=== PATIENT | female | born 1970 | race Caucasian/White ===

== ENCOUNTER 2017-02-12 15:03 | Emergency (ER) | payer MEDICAID, MEDICARE ==
[~2017-02-12] VITALS: Ht 162.6 cm; Wt 66.7 kg
[~2017-02-12 15:03] MED LIST: ACHD5005 PO; ALBU17AE23 IH; ALBU17AE3 IH; ALBU8.5H2 IH; ALBU8.5H2 INH; ALPR.5T PO; ALPR1T PO; ALPR1TAB7 PO; ATEN50TA; AZIT-21 PO; BENZ0.5T3 PO; BUDE10.22 IH; BUDE6HFA; BUDE6HFA IH; BUDE6HFA INH; CARB200T6; CIPR500T78 PO; CITA20TA4 PO; CLIN300C3 PO; CLON1TAB3; CYCL10TA9 PO; DICY20TA57 PO; DIPH-633 PO; DULO60CA58 PO; DULO60CA6 PO; DVL250TEC1; EPIN0.3P3 IM; FAMO20TA5; FAMO20TA5 PO; FLUT16SP22 NSEACH; FLUT1DIS26; GEODON; HYDR-2856 PO; HYDR-3583 PO; HYDR-757 PO; HYDR1TAB PO; HYDR25CA5 PO; IBP800T PO; IBUP-1773 PO; LD5PT TOP; LRT10T; MONT4TAB5; MUCINEX; NAPR-243 PO; OLN10T PO; PENI500T PO; PRCD5U PO; PRD20T; PRD20T PO; PROP1TAB77 PO; QUET400T; QUET50TA; RISP1TAB; RSP1T PO; RT-ALBUINH IH; SULF-222 PO; SULF1TAB38 PO; TOPI50TA2 PO; TRASADONE; TRAZ150T42 PO; TRM50T PO; ZOLP10TA5 PO
--- OUTSIDE RECORDS SUMMARY | 2017-02-12 15:13 | XMS REPORT | Continuity of Care Document ---
Author Author [facility] Address Unknown Phone Unavailable Allergies Active Description Code Type Severity Reaction Onset Reported/Identified Relationship to Patient Clinical Status Yes aripiprazole [id number] Drug Allergy Mild N/A 12/21/2008 Yes Abilify Drug Allergy N/A N/A 02/24/2010 Yes Abilify Drug Allergy 02/24/2010 Yes Geodon Drug Allergy N/A N/A 07/13/2012 Yes Geodon Drug Allergy 07/13/2012 Yes ziprasidone HCl [id number] Drug Allergy Severe N/A 12/08/2012 Yes ziprasidone mesylate [id number] Drug Allergy Severe N/A 12/08/2012 Yes hydrocodone-acetaminophen 5-325 mg tablet Drug Allergy N/A N/A 03/23/2013 Yes Xanax 1 mg tablet Drug Allergy N/A N/A 03/23/2013 Medications Problems Date Dx Coded Attending Type Code Diagnosis Diagnosed By 02/06/2010 296.80 MO BIPOLAR NOS 02/06/2010 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 02/06/2010 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 02/06/2010 296.80 MO BIPOLAR NOS 02/06/2010 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 02/06/2010 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 02/06/2010 TAE OLIVIER APRN 296.80 MO BIPOLAR NOS 02/06/2010 TAE OLIVIER APRN 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 02/06/2010 TAE OLIVIER APRN 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 02/06/2010 KENNY WALKER APRNIA R 296.80 MO BIPOLAR NOS 02/06/2010 COLIN WALKER APRNRICIA R 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 02/06/2010 COLIN WALKER APRNRICIA R 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 02/06/2010 COLIN WALKER APRNRICIA R 296.80 MO BIPOLAR NOS 02/06/2010 COLIN WALKER APRNRICIA R 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 02/06/2010 WALKER HEADING REPAIRER, JOSELUIS R 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 02/06/2010 CARVAJAL DO, GALDINO K 296.80 MO BIPOLAR NOS 02/06/2010 CARVAJAL DO, GALDINO K 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 02/06/2010 CARVAJAL DO, GALDINO K 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 02/06/2010 OLIVIERLAUREN GILL TAE SHANNON 296.80 MO BIPOLAR NOS 02/06/2010 SOY GILL TAE SHANNON 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 02/06/2010 SOY GILL TAE SHANNON 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 02/06/2010 296.80 MO BIPOLAR NOS 02/06/2010 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 02/06/2010 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 02/06/2010 296.80 MO BIPOLAR NOS 02/06/2010 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 02/06/2010 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 02/06/2010 296.80 MO BIPOLAR NOS 02/06/2010 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 02/06/2010 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 02/06/2010 296.80 MO BIPOLAR NOS 02/06/2010 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 02/06/2010 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 02/06/2010 296.80 MO BIPOLAR NOS 02/06/2010 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 02/06/2010 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 02/06/2010 SOY GILL TAE SHANNON 296.80 MO BIPOLAR NOS 02/06/2010 SOY GILL TAE SHANNON 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 02/06/2010 SOY GILL TAE SHANNON 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 02/06/2010 SOY GILL TAE SHANNON 296.80 MO BIPOLAR NOS 02/06/2010 SOY GILL TAE SHANNON 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 02/06/2010 OLIVIER APRN, TAE SHANNON 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 02/06/2010 CARVAJAL DO, GALDINO K 296.80 MO BIPOLAR NOS 02/06/2010 CARVAJAL DO, GALDINO K 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 02/06/2010 CARVAJAL DO, GALDINO K 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 02/06/2010 OLIVIER HEADING REPAIRER, TAE SHANNON 296.80 MO BIPOLAR NOS 02/06/2010 OLIVIER HEADING REPAIRER, TAE SHANNON 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 02/06/2010 OLIVIER HEADING REPAIRER, TAE BAH 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 02/06/2010 CARVAJAL DO, GALDINO K 296.80 MO BIPOLAR NOS 02/06/2010 CARVAJAL DO, GALDINO K 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 02/06/2010 CARVAJAL DO, GALDINO K 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 02/06/2010 OLIVIER HEADING REPAIRER, TAE SHANNON 296.80 MO BIPOLAR NOS 02/06/2010 OLIVIER HEADING REPAIRER, TAE BAH 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 02/06/2010 OLIVIER HEADING REPAIRER, TAE BAH 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 02/06/2010 CARVAJAL DO, GALDINO K 296.80 MO BIPOLAR NOS 02/06/2010 CARVAJAL DO, GALDINO K 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 02/06/2010 CARVAJAL DO, GALDINO K 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 02/06/2010 ROMELIA KESSLER MD 296.80 MO BIPOLAR NOS 02/06/2010 CHECO LEYVA, ROMELIA Guerra 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 02/06/2010 ROMELIA KESSLER MD 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 02/06/2010 OLIVIER HEADING REPAIRER, TAE BAH 296.80 MO BIPOLAR NOS 02/06/2010 OLIVIER HEADING REPAIRER, TAE BAH 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 02/06/2010 OLIVIER HEADING REPAIRER, TAE SHIVA 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 02/06/2010 OLIVIER HEADING REPAIRER, TAE SHANNON 296.80 MO BIPOLAR NOS 02/06/2010 OLIVIER HEADING REPAIRER, TAE SHIVA 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 02/06/2010 OLIVIER HEADING REPAIRER, TAE SHIVA 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 02/06/2010 OLIVIER HEADING REPAIRER, TAE SHANNON 296.80 MO BIPOLAR NOS 02/06/2010 OLIVIER HEADING REPAIRER, TAE SHIVA 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 02/06/2010 OLIVIER HEADING REPAIRER, TAE SHIVA 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 02/06/2010 296.80 MO BIPOLAR NOS 02/06/2010 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 02/06/2010 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 02/06/2010 TAE OLIVIER APRN 296.80 MO BIPOLAR NOS 02/06/2010 TAE OLIVIER APRN 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90 Asthma Unspecified 02/24/2010 729.5 Pain In Limb 02/24/2010 TAE OLIVIER APRN 401.9 UNSPECIFIED ESSENTIAL HYPERTENSION 02/24/2010 TAE OLIVIER APRN 493.90 Asthma Unspecified 02/24/2010 TAE OLIVIER APRN 729.5 Pain In Limb 02/24/2010 COLIN WALKER APRNRICIA R 401.9 UNSPECIFIED ESSENTIAL HYPERTENSION 02/24/2010 DENISE GILL JOSELUIS R 493.90 Asthma Unspecified 02/24/2010 DENISE GILL JOSELUIS R 729.5 Pain In Limb 02/24/2010 DENISE GILL JOSELUIS R 401.9 UNSPECIFIED ESSENTIAL HYPERTENSION 02/24/2010 DENISE GILL JOSELUIS R 493.90 Asthma Unspecified 02/24/2010 DENISE GILL JOSELUIS R 729.5 Pain In Limb 02/24/2010 CARVAJAL DO, GALDINO K 401.9 UNSPECIFIED ESSENTIAL HYPERTENSION 02/24/2010 CARVAJAL DO, GALDINO K 493.90 Asthma Unspecified 02/24/2010 CARVAJAL DO, GALDINO K 729.5 Pain In Limb 02/24/2010 TAE OLIVIER APRN 401.9 UNSPECIFIED ESSENTIAL HYPERTENSION 02/24/2010 SOY GILL, TAE SHANNON 493.90 Asthma Unspecified 02/24/2010 SOY CALHOUNN, TAE SHANNON 729.5 Pain In Limb 02/24/2010 401.9 UNSPECIFIED ESSENTIAL HYPERTENSION 02/24/2010 493.90 Asthma Unspecified 02/24/2010 729.5 Pain In Limb 02/24/2010 401.9 UNSPECIFIED ESSENTIAL HYPERTENSION 02/24/2010 493.90 Asthma Unspecified 02/24/2010 729.5 Pain In Limb 02/24/2010 401.9 UNSPECIFIED ESSENTIAL HYPERTENSION 02/24/2010 493.90 Asthma Unspecified 02/24/2010 729.5 Pain In Limb 02/24/2010 401.9 UNSPECIFIED ESSENTIAL HYPERTENSION 02/24/2010 493.90 Asthma Unspecified 02/24/2010 729.5 Pain In Limb 02/24/2010 401.9 UNSPECIFIED ESSENTIAL HYPERTENSION 02/24/2010 493.90 Asthma Unspecified 02/24/2010 729.5 Pain In Limb 02/24/2010 SOY GILL, TAE SHANNON 401.9 UNSPECIFIED ESSENTIAL HYPERTENSION 02/24/2010 SOY GILL, TAE SHANNON 493.90 Asthma Unspecified 02/24/2010 SOY GILL, TAE SHANNON 729.5 Pain In Limb 02/24/2010 SOY GILL, TAE SHANNON 401.9 UNSPECIFIED ESSENTIAL HYPERTENSION 02/24/2010 SOY GILL, TAE BAH 493.90 Asthma Unspecified 02/24/2010 SOY GILL, TAE SHANNON 729.5 Pain In Limb 02/24/2010 CARVAJAL DO, GALDINO K 401.9 UNSPECIFIED ESSENTIAL HYPERTENSION 02/24/2010 CARVAJAL DO, GALDINO K 493.90 Asthma Unspecified 02/24/2010 CARVAJAL DO, GALDINO K 729.5 Pain In Limb 02/24/2010 OLIVIER HEADING REPAIRER, TAE SHANNON 401.9 UNSPECIFIED ESSENTIAL HYPERTENSION 02/24/2010 OLIVIER HEADING REPAIRER, TAE BAH 493.90 Asthma Unspecified 02/24/2010 OLIVIER HEADING REPAIRER, TAE SHANNON 729.5 Pain In Limb 02/24/2010 CARVAJAL DO, GALDINO K 401.9 UNSPECIFIED ESSENTIAL HYPERTENSION 02/24/2010 CARVAJAL DO, GALDINO K 493.90 Asthma Unspecified 02/24/2010 CARVAJAL DO, GALDINO K 729.5 Pain In Limb 02/24/2010 OLIVIER HEADING REPAIRER, TAE SHANNON 401.9 UNSPECIFIED ESSENTIAL HYPERTENSION 02/24/2010 OILVIER HEADING REPAIRER, TAE SHANNON 493.90 Asthma Unspecified 02/24/2010 OLIVIER HEADING REPAIRER, TAE SHANNON 729.5 Pain In Limb 02/24/2010 CARVAJAL DO, GALDINO K 401.9 UNSPECIFIED ESSENTIAL HYPERTENSION 02/24/2010 CARVAJAL DO, GALDINO K 493.90 Asthma Unspecified 02/24/2010 CARVAJAL DO, GALDINO K 729.5 Pain In Limb 02/24/2010 ROMELIA KESSLER MD 401.9 UNSPECIFIED ESSENTIAL HYPERTENSION 02/24/2010 ROMELIA KESSLER MD 493.90 Asthma Unspecified 02/24/2010 ROMELIA KESSLER MD 729.5 Pain In Limb 02/24/2010 OLIVIER HEADING REPAIRER, TAE BAH 401.9 UNSPECIFIED ESSENTIAL HYPERTENSION 02/24/2010 OLIVIER HEADING REPAIRER, TAE SHANNON 493.90 Asthma Unspecified 02/24/2010 OLIVIER HEADING REPAIRER, TAE SHANNON 729.5 Pain In Limb 02/24/2010 OLIVIER HEADING REPAIRER, TAE SHANNON 401.9 UNSPECIFIED ESSENTIAL HYPERTENSION 02/24/2010 OLIVIER HEADING REPAIRER, TAE SHANNON 493.90 Asthma Unspecified 02/24/2010 OLIVIER HEADING REPAIRER, TAE SHANNON 729.5 Pain In Limb 02/24/2010 OLIVIER HEADING REPAIRER, TAE SHANNON 401.9 UNSPECIFIED ESSENTIAL HYPERTENSION 02/24/2010 OLIVIER HEADING REPAIRER, TAE SHANNON 493.90 Asthma Unspecified 02/24/2010 OLIVIER HEADING REPAIRER, TAE SHANNON 729.5 Pain In Limb 02/24/2010 401.9 UNSPECIFIED ESSENTIAL HYPERTENSION 02/24/2010 493.90 Asthma Unspecified 02/24/2010 729.5 Pain In Limb 02/24/2010 OLIVIER HEADING REPAIRER, TAE BAH 401.9 UNSPECIFIED ESSENTIAL HYPERTENSION 02/24/2010 OLIVIER HEADING REPAIRER, TAE SHANNON 493.90 Asthma Unspecified 02/24/2010 OLIVIER HEADING REPAIRER, TAE SHANNON 729.5 Pain In Limb 02/24/2010 MADL HEADING REPAIRER, MICHOACANO L 401.9 UNSPECIFIED ESSENTIAL HYPERTENSION 02/24/2010 MICHOACANO CALDERÓN APRN L 493.90 Asthma Unspecified 02/24/2010 MICHOACANO CALDERÓN APRN L 729.5 Pain In Limb 02/24/2010 TAE OLIVIER APRN 401.9 UNSPECIFIED ESSENTIAL HYPERTENSION 02/24/2010 TAE OLIVIER APRN 493.90 Asthma Unspecified 02/24/2010 TAE OLIVIER APRN 729.5 Pain In Limb 09/17/2010 V58.69 MEDICATION HIGH RISK 09/17/2010 V58.69 MEDICATION HIGH RISK 09/17/2010 TAE OLIVIER APRN V58.69 MEDICATION HIGH RISK 09/17/2010 WALKER HEADING REPAIRER, JOSELUIS R V58.69 MEDICATION HIGH RISK 09/17/2010 WALKER JAIRO JOSELUIS R V58.69 MEDICATION HIGH RISK 09/17/2010 CARVAJAL DO, GALDINO K V58.69 MEDICATION HIGH RISK 09/17/2010 TAE OLIVIER APRN V58.69 MEDICATION HIGH RISK 09/17/2010 V58.69 MEDICATION HIGH RISK 09/17/2010 V58.69 MEDICATION HIGH RISK 09/17/2010 V58.69 MEDICATION HIGH RISK 09/17/2010 V58.69 MEDICATION HIGH RISK 09/17/2010 V58.69 MEDICATION HIGH RISK 09/17/2010 TAE OLIVIER APRN V58.69 MEDICATION HIGH RISK 09/17/2010 TAE OLIVIER APRN V58.69 MEDICATION HIGH RISK 09/17/2010 CARVAJAL DO, GALDINO K V58.69 MEDICATION HIGH RISK 09/17/2010 SOY CALHOUNKamille TAE SHANNON V58.69 MEDICATION HIGH RISK 09/17/2010 CARVAJAL DO, GALDINO K V58.69 MEDICATION HIGH RISK 09/17/2010 OLIVIER JAIRO, TAE SHANNON V58.69 MEDICATION HIGH RISK 09/17/2010 CARVAJAL DO, GALDINO K V58.69 MEDICATION HIGH RISK 09/17/2010 CHECO LEYVA, ROMELIA Guerra V58.69 MEDICATION HIGH RISK 09/17/2010 TAE OLIVIER APRN V58.69 MEDICATION HIGH RISK 09/17/2010 SOY CALHOUNKamille TAE SHANNON V58.69 MEDICATION HIGH RISK 09/17/2010 SOY CALHOUNNTAE V58.69 MEDICATION HIGH RISK 09/17/2010 V58.69 MEDICATION HIGH RISK 09/17/2010 TAE OLIVIER APRN V58.69 MEDICATION HIGH RISK 09/17/2010 STEPHANE CALHOUNNMICHOACANO V58.69 MEDICATION HIGH RISK 09/17/2010 SOY CALHOUNNTAE V58.69 MEDICATION HIGH RISK 10/28/2010 295.30 P SCHIZO PARANOID UNSPECIFIED 10/28/2010 295.30 P SCHIZO PARANOID UNSPECIFIED 10/28/2010 OLIVIER HEADING REPAIRER, TAE SHANNON 295.30 P SCHIZO PARANOID UNSPECIFIED 10/28/2010 KENNY WALKER APRNIA R 295.30 P SCHIZO PARANOID UNSPECIFIED 10/28/2010 JOSELUIS WALKER APRN R 295.30 P SCHIZO PARANOID UNSPECIFIED 10/28/2010 GALDINO CARVAJAL DO 295.30 P SCHIZO PARANOID UNSPECIFIED 10/28/2010 SOY GILL TAE SHIVA 295.30 P SCHIZO PARANOID UNSPECIFIED 10/28/2010 295.30 P SCHIZO PARANOID UNSPECIFIED 10/28/2010 295.30 P SCHIZO PARANOID UNSPECIFIED 10/28/2010 295.30 P SCHIZO PARANOID UNSPECIFIED 10/28/2010 295.30 P SCHIZO PARANOID UNSPECIFIED 10/28/2010 295.30 P SCHIZO PARANOID UNSPECIFIED 10/28/2010 SOY GILL TAE SHIVA 295.30 P SCHIZO PARANOID UNSPECIFIED 10/28/2010 SOY GILL TAE SHIVA 295.30 P SCHIZO PARANOID UNSPECIFIED 10/28/2010 GALDINO CARVAJAL DO K 295.30 P SCHIZO PARANOID UNSPECIFIED 10/28/2010 SOY GILL TAE SHIVA 295.30 P SCHIZO PARANOID UNSPECIFIED 10/28/2010 GALDION CARVAJAL DO K 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.30 P SCHIZO PARANOID UNSPECIFIED 10/28/2010 SOY GILL TAE SHIVA 295.30 P SCHIZO PARANOID UNSPECIFIED 10/28/2010 GALDINO CARVAJAL DO K 295.30 P SCHIZO PARANOID UNSPECIFIED 10/28/2010 CHECO LEYVA, ROMELIA Guerra 295.30 P SCHIZO PARANOID UNSPECIFIED 10/28/2010 OLIVIERTAE JOHNSON APRN 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.30 P SCHIZO PARANOID UNSPECIFIED 10/28/2010 OLIVIER TAE GILL 295.30 P SCHIZO PARANOID UNSPECIFIED 10/28/2010 OLIVIERTAE JOHNSON APRN 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.30 P SCHIZO PARANOID UNSPECIFIED 10/28/2010 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.30 P SCHIZO PARANOID UNSPECIFIED 10/28/2010 TAE OLIVIER APRN 295.30 P SCHIZO PARANOID UNSPECIFIED 10/28/2010 ARACELIL MICHOACANO GILL 295.30 P SCHIZO PARANOID UNSPECIFIED 10/28/2010 OLIVIERTAE JOHNSON APRN 295.30 P SCHIZO PARANOID UNSPECIFIED 02/24/2011 300.02 AN GEN ANXIETY 02/24/2011 300.02 AN GEN ANXIETY 02/24/2011 TAE OLIVIER APRN 300.02 AN GEN ANXIETY 02/24/2011 KENNY WALKER APRNIA R 300.02 AN GEN ANXIETY 02/24/2011 JOSELUIS WALKER APRN R 300.02 AN GEN ANXIETY 02/24/2011 CARVAJAL ELISE MACEDOA K 300.02 AN GEN ANXIETY 02/24/2011 SOY CALHOUNNTAE 300.02 AN GEN ANXIETY 02/24/2011 300.02 AN GEN ANXIETY 02/24/2011 300.02 AN GEN ANXIETY 02/24/2011 300.02 AN GEN ANXIETY 02/24/2011 300.02 AN GEN ANXIETY 02/24/2011 300.02 AN GEN ANXIETY 02/24/2011 SOY CALHOUNNTAE 300.02 AN GEN ANXIETY 02/24/2011 SOY CALHOUNKmaille TAE SHANNON 300.02 AN GEN ANXIETY 02/24/2011 CARVAJAL ELISE MACEDOA K 300.02 AN GEN ANXIETY 02/24/2011 SOY CALHOUNKamille TAE SHANNON 300.02 AN GEN ANXIETY 02/24/2011 CARVAJAL DO GALDINO K 300.02 AN GEN ANXIETY 02/24/2011 SOY CALHOUNKamille TAE SHANNON 300.02 AN GEN ANXIETY 02/24/2011 CARVAJAL DO GALDINO K 300.02 AN GEN ANXIETY 02/24/2011 CHECO LEYVA, ROMELIA Guerra 300.02 AN GEN ANXIETY 02/24/2011 SOY CALHOUNKamille TAE SHANNON 300.02 AN GEN ANXIETY 02/24/2011 TAE OLIVIER APRN 300.02 AN GEN ANXIETY 02/24/2011 TAE OLIVIER APRN 300.02 AN GEN ANXIETY 02/24/2011 300.02 AN GEN ANXIETY 02/24/2011 TAE OLIVIER APRN 300.02 AN GEN ANXIETY 02/24/2011 MICHOACANO CALDERÓN APRN 300.02 AN GEN ANXIETY 02/24/2011 TAE OLIVIER APRN 300.02 AN GEN ANXIETY 04/13/2011 272.4 OTHER AND UNSPECIFIED HYPERLIPIDEMIA 04/13/2011 586 Renal Failure Unspecified 04/13/2011 728.85 Spasm Of Muscle 04/13/2011 272.4 OTHER AND UNSPECIFIED HYPERLIPIDEMIA 04/13/2011 586 Renal Failure Unspecified 04/13/2011 728.85 Spasm Of Muscle 04/13/2011 TAE OLIVIER APRN 272.4 OTHER AND UNSPECIFIED HYPERLIPIDEMIA 04/13/2011 TAE OLIVIER APRN 586 Renal Failure Unspecified 04/13/2011 TAE OLIVIER APRNH 728.85 Spasm Of Muscle 04/13/2011 DENISE CALHOUNCOLIN SimentalJOSELUIS R 272.4 OTHER AND UNSPECIFIED HYPERLIPIDEMIA 04/13/2011 DENISE CALHOUNKamille JOSELUIS R 586 Renal Failure Unspecified 04/13/2011 WALKER HEADING REPAIRERCOILN SimentalJOSELUIS R 728.85 Spasm Of Muscle 04/13/2011 DENISE CALHOUNKamille JOSELUIS R 272.4 OTHER AND UNSPECIFIED HYPERLIPIDEMIA 04/13/2011 DENISE CALHOUNKamille JOSELUIS R 586 Renal Failure Unspecified 04/13/2011 WALKER HEADING REPAIRERCOLIN SimentalJOSELUIS R 728.85 Spasm Of Muscle 04/13/2011 CARVAJAL DO, GALDINO K 272.4 OTHER AND UNSPECIFIED HYPERLIPIDEMIA 04/13/2011 CARVAJAL DO, GALDINO K 586 Renal Failure Unspecified 04/13/2011 CARVAJAL DO, GALDINO K 728.85 Spasm Of Muscle 04/13/2011 TAE OLIVIER APRN 272.4 OTHER AND UNSPECIFIED HYPERLIPIDEMIA 04/13/2011 TAE OLIVIER APRN SHIVA 586 Renal Failure Unspecified 04/13/2011 TAE OLIVIER APRNH 728.85 Spasm Of Muscle 04/13/2011 272.4 OTHER AND UNSPECIFIED HYPERLIPIDEMIA 04/13/2011 586 Renal Failure Unspecified 04/13/2011 728.85 Spasm Of Muscle 04/13/2011 272.4 OTHER AND UNSPECIFIED HYPERLIPIDEMIA 04/13/2011 586 Renal Failure Unspecified 04/13/2011 728.85 Spasm Of Muscle 04/13/2011 272.4 OTHER AND UNSPECIFIED HYPERLIPIDEMIA 04/13/2011 586 Renal Failure Unspecified 04/13/2011 728.85 Spasm Of Muscle 04/13/2011 272.4 OTHER AND UNSPECIFIED HYPERLIPIDEMIA 04/13/2011 586 Renal Failure Unspecified 04/13/2011 728.85 Spasm Of Muscle 04/13/2011 272.4 OTHER AND UNSPECIFIED HYPERLIPIDEMIA 04/13/2011 586 Renal Failure Unspecified 04/13/2011 728.85 Spasm Of Muscle 04/13/2011 OLIVIER TAE GILLH 272.4 OTHER AND UNSPECIFIED HYPERLIPIDEMIA 04/13/2011 OLIVIER TAE GILLH 586 Renal Failure Unspecified 04/13/2011 OLIVIER TAE GILLH 728.85 Spasm Of Muscle 04/13/2011 OLIVIER TAE GILLH 272.4 OTHER AND UNSPECIFIED HYPERLIPIDEMIA 04/13/2011 OLIVIER TAE GILL SHIVA 586 Renal Failure Unspecified 04/13/2011 OLIVIER TAE GILLH 728.85 Spasm Of Muscle 04/13/2011 CARVAJAL DO, GALDINO K 272.4 OTHER AND UNSPECIFIED HYPERLIPIDEMIA 04/13/2011 CARVAJAL DO, GALDINO K 586 Renal Failure Unspecified 04/13/2011 CARVAJAL DO, GALDINO K 728.85 Spasm Of Muscle 04/13/2011 OLIVIER TAE GILLH 272.4 OTHER AND UNSPECIFIED HYPERLIPIDEMIA 04/13/2011 OLIVIER HEADING REPAIRERTAEH 586 Renal Failure Unspecified 04/13/2011 OLIVIER TAE GILL 728.85 Spasm Of Muscle 04/13/2011 CARVAJAL DO, GALDINO K 272.4 OTHER AND UNSPECIFIED HYPERLIPIDEMIA 04/13/2011 CARVAJAL DO, GALDINO K 586 Renal Failure Unspecified 04/13/2011 CARVAJAL DO, GALDINO K 728.85 Spasm Of Muscle 04/13/2011 OLIVIER HEADING REPAIRERTAE SimentalH 272.4 OTHER AND UNSPECIFIED HYPERLIPIDEMIA 04/13/2011 OLIVIER HEADING REPAIRER, TAE BAH 586 Renal Failure Unspecified 04/13/2011 OLIVIER TAE GILL SHIVA 728.85 Spasm Of Muscle 04/13/2011 CARVAJAL DO, GALDINO K 272.4 OTHER AND UNSPECIFIED HYPERLIPIDEMIA 04/13/2011 CARVAJAL DO, GALDINO K 586 Renal Failure Unspecified 04/13/2011 CARVAJAL DO, GALDINO K 728.85 Spasm Of Muscle 04/13/2011 ROMELIA KESSLER MD 272.4 OTHER AND UNSPECIFIED HYPERLIPIDEMIA 04/13/2011 ROMELIA KESSLER MD 586 Renal Failure Unspecified 04/13/2011 ROMELIA KESSLER MD 728.85 Spasm Of Muscle 04/13/2011 OLIVIER HEADING REPAIRERTAE 272.4 OTHER AND UNSPECIFIED HYPERLIPIDEMIA 04/13/2011 OLIVIER HEADING REPAIRER, TAE SHIVA 586 Renal Failure Unspecified 04/13/2011 OLIVIER HEADING REPAIRER, TAE BAH 728.85 Spasm Of Muscle 04/13/2011 OLIVIER HEADING REPAIRERTAEH 272.4 OTHER AND UNSPECIFIED HYPERLIPIDEMIA 04/13/2011 OLIVIER HEADING REPAIRER, TAE SHIVA 586 Renal Failure Unspecified 04/13/2011 OLIVIER HEADING REPAIRER, TAE BAH 728.85 Spasm Of Muscle 04/13/2011 OLIVIER HEADING REPAIRER, TAE SHIVA 272.4 OTHER AND UNSPECIFIED HYPERLIPIDEMIA 04/13/2011 OLIVIER HEADING REPAIRER, TAE SHIVA 586 Renal Failure Unspecified 04/13/2011 OLIVIER HEADING REPAIRER, TAE BAH 728.85 Spasm Of Muscle 04/13/2011 272.4 OTHER AND UNSPECIFIED HYPERLIPIDEMIA 04/13/2011 586 Renal Failure Unspecified 04/13/2011 728.85 Spasm Of Muscle 04/13/2011 OLIVIER HEADING REPAIRERTAE SHIVA 272.4 OTHER AND UNSPECIFIED HYPERLIPIDEMIA 04/13/2011 OLIVIER HEADING REPAIRER, TAE SHIVA 586 Renal Failure Unspecified 04/13/2011 OLIVIER HEADING REPAIRER, TAE HSIVA 728.85 Spasm Of Muscle 04/13/2011 MADL HEADING REPAIRER, MICHOACANO L 272.4 OTHER AND UNSPECIFIED HYPERLIPIDEMIA 04/13/2011 MADL HEADING REPAIRER, MICHOACANO L 586 Renal Failure Unspecified 04/13/2011 MADL HEADING REPAIRER, MICHOACANO L 728.85 Spasm Of Muscle 04/13/2011 OLIVIER HEADING REPAIRER, TAE SHIVA 272.4 OTHER AND UNSPECIFIED HYPERLIPIDEMIA 04/13/2011 TAE OLIVIER APRN 586 Renal Failure Unspecified 04/13/2011 TAE OLIVIER APRN 728.85 Spasm Of Muscle 07/09/2011 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 07/09/2011 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 07/09/2011 TAE OLIVIER APRN 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 07/09/2011 JOSELUIS WALKER APRN R 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 07/09/2011 KENNY WALKER APRNIA R 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 07/09/2011 CARVAJAL DO, GALDINO K 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 07/09/2011 SOY GILL TAE SHIVA 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 07/09/2011 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 07/09/2011 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 07/09/2011 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 07/09/2011 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 07/09/2011 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 07/09/2011 TAE OLIVIER APRN 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 07/09/2011 TAE OLIVIER APRN 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 07/09/2011 CARVAJAL DO, AGLDINO K 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 07/09/2011 SOY GILL TAE SHIVA 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 07/09/2011 CARVAJAL DO, GALDINO K 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 07/09/2011 TAE OLIVIER APRN 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 07/09/2011 CARVAJAL DO, GALDINO K 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 07/09/2011 ROMELIA KESSLER MD 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 07/09/2011 TAE OLIVIER APRN 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 07/09/2011 TAE OLIVIER APRN 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 07/09/2011 TAE OLIVIER APRN 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 07/09/2011 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 07/09/2011 TAE OLIVIER APRN 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 07/09/2011 MICHOACANO CALDERÓN APRN 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 07/09/2011 TAE OLIVIER APRN 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 10/15/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/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/2011 TAE OLIVIER APRN 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/2011 JOSELUIS WALKER APRN R 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/2011 JOSELUIS WALKER APRN R 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/2011 GALDINO CARVAJAL DO K 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/2011 TAE OLIVIER APRN 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/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/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/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/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/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/2011 TAE OLIVIER APRN 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/2011 TAE OLIVIER APRN 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/2011 GALDINO CARVAJAL DO K 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/2011 TAE OLIVIER APRN 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/2011 GALDINO CARVAJAL DO K 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/2011 TAE OLIVIER APRN 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81 Flu Dx (medicare Only) 01/14/2012 461.9 Sinusitis Acute 01/14/2012 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 01/14/2012 V04.81 Flu Dx (medicare Only) 01/14/2012 TAE OLIVIER APRN 461.9 Sinusitis Acute 01/14/2012 SOY CALHOUNKamille TAE SHIVA 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 01/14/2012 SOY CALHOUNNTAE V04.81 Flu Dx (medicare Only) 01/14/2012 JOSELUIS WALKER APRN 461.9 Sinusitis Acute 01/14/2012 JOSELUIS WALKER APRN 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 01/14/2012 JOSELUIS WALKER APRN V04.81 Flu Dx (medicare Only) 01/14/2012 JOSELUIS WALKER APRN 461.9 Sinusitis Acute 01/14/2012 JOSELUIS WALKER APRN 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 01/14/2012 JOSELUIS WALKER APRN V04.81 Flu Dx (medicare Only) 01/14/2012 CARVAJAL DOELISEA K 461.9 Sinusitis Acute 01/14/2012 CARVAJAL DO GALDINO K 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 01/14/2012 CARVAJAL DO, GALDINO K V04.81 Flu Dx (medicare Only) 01/14/2012 OLIVIER HEADING REPAIRERTAE 461.9 Sinusitis Acute 01/14/2012 OLIVIER HEADING REPAIRER, TAE BAH 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 01/14/2012 SOY CALHOUNNTAE V04.81 Flu Dx (medicare Only) 01/14/2012 461.9 Sinusitis Acute 01/14/2012 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 01/14/2012 V04.81 Flu Dx (medicare Only) 01/14/2012 461.9 Sinusitis Acute 01/14/2012 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 01/14/2012 V04.81 Flu Dx (medicare Only) 01/14/2012 461.9 Sinusitis Acute 01/14/2012 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 01/14/2012 V04.81 Flu Dx (medicare Only) 01/14/2012 461.9 Sinusitis Acute 01/14/2012 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 01/14/2012 V04.81 Flu Dx (medicare Only) 01/14/2012 461.9 Sinusitis Acute 01/14/2012 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 01/14/2012 V04.81 Flu Dx (medicare Only) 01/14/2012 OLIVIERLAUREN GILLTAE 461.9 Sinusitis Acute 01/14/2012 OLIVIER HEADING REPAIRERTAE 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 01/14/2012 OLIVIERLAUREN GILL TAE SHANNON V04.81 Flu Dx (medicare Only) 01/14/2012 OLIVIERLAUREN GILL TAE SHANNON 461.9 Sinusitis Acute 01/14/2012 OLIVIER JAIRO TAE SHANNON 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 01/14/2012 SOY GILLTAE V04.81 Flu Dx (medicare Only) 01/14/2012 GALDINO CARVAJAL DO 461.9 Sinusitis Acute 01/14/2012 GALDINO CARVAJAL DO K 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 01/14/2012 ELISE CARVAJAL DOA K V04.81 Flu Dx (medicare Only) 01/14/2012 OLIVIER JAIRO TAE SHANNON 461.9 Sinusitis Acute 01/14/2012 OLIVIER HEADING REPAIRER, TAE SHANNON 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 01/14/2012 OLIVIER JAIRO TAE SHANNON V04.81 Flu Dx (medicare Only) 01/14/2012 CARVAJAL DOELISEA K 461.9 Sinusitis Acute 01/14/2012 CARVAJAL DO GALDINO K 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 01/14/2012 CARVAJAL DO GALDINO K V04.81 Flu Dx (medicare Only) 01/14/2012 OLIVIER HEADING REPAIRER, TAE SHANNON 461.9 Sinusitis Acute 01/14/2012 TAE OLIVIER APRN 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 01/14/2012 TAE OLIVIER APRN V04.81 Flu Dx (medicare Only) 01/14/2012 CARVAJAL DOELISEA K 461.9 Sinusitis Acute 01/14/2012 CARVAJAL DO, GALDINO K 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 01/14/2012 CARVAJAL DOELISEA K V04.81 Flu Dx (medicare Only) 01/14/2012 ROMELIA KESSLER MD 461.9 Sinusitis Acute 01/14/2012 ROMELIA KESSLER MD 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 01/14/2012 ROMELIA KESSLER MD V04.81 Flu Dx (medicare Only) 01/14/2012 TAE OLIVIER APRN 461.9 Sinusitis Acute 01/14/2012 TAE OLIVIER APRN 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 01/14/2012 TAE OLIVIER APRN V04.81 Flu Dx (medicare Only) 01/14/2012 TAE OLIVIER APRN 461.9 Sinusitis Acute 01/14/2012 TAE OLIVIER APRN 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 01/14/2012 TAE OLIVIER APRN V04.81 Flu Dx (medicare Only) 01/14/2012 TAE OLIVIER APRN 461.9 Sinusitis Acute 01/14/2012 TAE OLIVIER APRN 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 01/14/2012 TAE OLIVIER APRN V04.81 Flu Dx (medicare Only) 01/14/2012 461.9 Sinusitis Acute 01/14/2012 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 01/14/2012 V04.81 Flu Dx (medicare Only) 01/14/2012 OLIVIER TAE GILL 461.9 Sinusitis Acute 01/14/2012 OLIVIER HEADING REPAIRERTAE Simental 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 01/14/2012 OLIVIER TAE GILL V04.81 Flu Dx (medicare Only) 01/14/2012 MADL HEADING REPAIRER, MICHOACANO L 461.9 Sinusitis Acute 01/14/2012 MADL HEADING REPAIRER, MICHOACANO L 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 01/14/2012 MADL MICHOACANO GILL V04.81 Flu Dx (medicare Only) 01/14/2012 TAE OLIVIER APRN 461.9 Sinusitis Acute 01/14/2012 TAE OLIVIER APRN [place] Chronic 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 01/14/2012 TAE OLIVIER APRN V04.81 Flu Dx (medicare Only) 03/09/2012 V03.82 PPV23 (PNEUMOVAX) DX 03/09/2012 V03.82 PPV23 (PNEUMOVAX) DX 03/09/2012 SOY CALHOUNNTAEH V03.82 PPV23 (PNEUMOVAX) DX 03/09/2012 DENISE HEADING REPAIRERJOSELUIS Simental V03.82 PPV23 (PNEUMOVAX) DX 03/09/2012 JOSELUIS WALKER APRN V03.82 PPV23 (PNEUMOVAX) DX 03/09/2012 GALDINO CARVAJAL DO V03.82 PPV23 (PNEUMOVAX) DX 03/09/2012 SOY CALHOUNKamille TAE BAH V03.82 PPV23 (PNEUMOVAX) DX 03/09/2012 V03.82 PPV23 (PNEUMOVAX) DX 03/09/2012 V03.82 PPV23 (PNEUMOVAX) DX 03/09/2012 V03.82 PPV23 (PNEUMOVAX) DX 03/09/2012 V03.82 PPV23 (PNEUMOVAX) DX 03/09/2012 V03.82 PPV23 (PNEUMOVAX) DX 03/09/2012 SOY CALHOUNKamille TAE SHIVA V03.82 PPV23 (PNEUMOVAX) DX 03/09/2012 SOY CALHOUNKamille TAE SHIVA V03.82 PPV23 (PNEUMOVAX) DX 03/09/2012 GALDINO CARVAJAL DO V03.82 PPV23 (PNEUMOVAX) DX 03/09/2012 OLIVIER HEADING REPAIRER, TAE SHIVA V03.82 PPV23 (PNEUMOVAX) DX 03/09/2012 GALDINO CARVAJAL DO V03.82 PPV23 (PNEUMOVAX) DX 03/09/2012 OLIVIER HEADING REPAIRER, TAE SHIVA V03.82 PPV23 (PNEUMOVAX) DX 03/09/2012 CARVAJAL GALDINO MACEDO V03.82 PPV23 (PNEUMOVAX) DX 03/09/2012 ROMELIA KESSLER MD V03.82 PPV23 (PNEUMOVAX) DX 03/09/2012 SOY CALHOUNN, TAE SHANNON V03.82 PPV23 (PNEUMOVAX) DX 03/09/2012 SOY HEADING REPAIRER, TAE SHANNON V03.82 PPV23 (PNEUMOVAX) DX 03/09/2012 OLIVIER HEADING REPAIRER, TAE SHANNON V03.82 PPV23 (PNEUMOVAX) DX 03/09/2012 V03.82 PPV23 (PNEUMOVAX) DX 03/09/2012 SOY CAHLOUNN, TAE SHANNON V03.82 PPV23 (PNEUMOVAX) DX 03/09/2012 MICHOACANO CALDERÓN APRN V03.82 PPV23 (PNEUMOVAX) DX 03/09/2012 TAE OLIVIER APRN V03.82 PPV23 (PNEUMOVAX) DX 04/19/2012 008.8 GASTROENTERITIS, VIRAL 04/19/2012 008.8 GASTROENTERITIS, VIRAL 04/19/2012 SOY CALHOUNN, TAE SHANNON 008.8 GASTROENTERITIS, VIRAL 04/19/2012 KENNY WALKER APRNIA R 008.8 GASTROENTERITIS, VIRAL 04/19/2012 DENISE HEADING REPAIRER, JOSELUIS R 008.8 GASTROENTERITIS, VIRAL 04/19/2012 WEI MACEDOGALDINO K 008.8 GASTROENTERITIS, VIRAL 04/19/2012 SOY CALHOUNKamille TAE SHANNON 008.8 GASTROENTERITIS, VIRAL 04/19/2012 008.8 GASTROENTERITIS, VIRAL 04/19/2012 008.8 GASTROENTERITIS, VIRAL 04/19/2012 008.8 GASTROENTERITIS, VIRAL 04/19/2012 008.8 GASTROENTERITIS, VIRAL 04/19/2012 008.8 GASTROENTERITIS, VIRAL 04/19/2012 OLIVIERLAUREN CALHOUNKamille TAE SHANNON 008.8 GASTROENTERITIS, VIRAL 04/19/2012 OLIVIER HEADING REPAIRER, TAE SHANNON 008.8 GASTROENTERITIS, VIRAL 04/19/2012 CARVAJAL GALDINO MACEDO K 008.8 GASTROENTERITIS, VIRAL 04/19/2012 OLIVIER HEADING REPAIRER, TAE SHANNON 008.8 GASTROENTERITIS, VIRAL 04/19/2012 GALDINO CARVAJAL DO 008.8 GASTROENTERITIS, VIRAL 04/19/2012 OLIVIER HEADING REPAIRER, TAE SHANNON 008.8 GASTROENTERITIS, VIRAL 04/19/2012 GALDINO CARVAJAL DO K 008.8 GASTROENTERITIS, VIRAL 04/19/2012 ROMELIA KESSLER MD 008.8 GASTROENTERITIS, VIRAL 04/19/2012 OLIVIER HEADING REPAIRER, TAE SHIVA 008.8 GASTROENTERITIS, VIRAL 04/19/2012 OLIVIER HEADING REPAIRER, TAE SHIVA 008.8 GASTROENTERITIS, VIRAL 04/19/2012 OLIVIER HEADING REPAIRER, TAE SHIVA 008.8 GASTROENTERITIS, VIRAL 04/19/2012 OLIVIER HEADING REPAIRER, TAE SHIVA 008.8 GASTROENTERITIS, VIRAL 04/19/2012 MADL HEADING REPAIRERMICHOACANO 008.8 GASTROENTERITIS, VIRAL 04/19/2012 OLIVIER HEADING REPAIRER, TAE SHIVA 008.8 GASTROENTERITIS, VIRAL 06/20/2012 KENNY WALKER APRNIA R 461.9 SINUSITIS ACUTE 06/20/2012 KENNY WALKER APRNIA R 461.9 SINUSITIS ACUTE 06/20/2012 GALDINO CARVAJAL DO K 461.9 SINUSITIS ACUTE 06/20/2012 OLIVIER APRN, TAE SHIVA 461.9 SINUSITIS ACUTE 06/20/2012 461.9 SINUSITIS ACUTE 06/20/2012 461.9 SINUSITIS ACUTE 06/20/2012 461.9 SINUSITIS ACUTE 06/20/2012 461.9 SINUSITIS ACUTE 06/20/2012 461.9 SINUSITIS ACUTE 06/20/2012 OLIVIER JAIRO, TAE SHIVA 461.9 SINUSITIS ACUTE 06/20/2012 OLIVIER JAIRO, TAE SHIVA 461.9 SINUSITIS ACUTE 06/20/2012 ELISE CARVAJAL DOA K 461.9 SINUSITIS ACUTE 06/20/2012 OLIVIER HEADING REPAIRER, TAE SHIVA 461.9 SINUSITIS ACUTE 06/20/2012 CARVAJAL ELISE MACEDOA K 461.9 SINUSITIS ACUTE 06/20/2012 OLIVIER JAIRO, TAE SHANNON 461.9 SINUSITIS ACUTE 06/20/2012 CARVAJAL ELISE MACEDOA K 461.9 SINUSITIS ACUTE 06/20/2012 ROMELIA KESSLER MD 461.9 SINUSITIS ACUTE 06/20/2012 OLIVIER JAIRO, TAE BAH 461.9 SINUSITIS ACUTE 06/20/2012 OLIVIER HEADING REPAIRER, TAE BAH 461.9 SINUSITIS ACUTE 06/20/2012 SOY CALHOUNN, TAE SHANNON 461.9 SINUSITIS ACUTE 06/20/2012 OLIVIER HEADING REPAIRER, TAE SHANNON 461.9 SINUSITIS ACUTE 06/20/2012 MADL HEADING REPAIRER, MICHOACANO L 461.9 SINUSITIS ACUTE 06/20/2012 SOY CALHOUNN, TAE SHANNON 461.9 SINUSITIS ACUTE 07/03/2012 JOSELUIS WALKER APRN 786.2 cough 07/03/2012 CARVAJAL DO, GALDINO K 786.2 cough 07/03/2012 OLIVIERLAUREN CALHOUNN, TAE SHANNON 786.2 cough 07/03/2012 786.2 cough 07/03/2012 786.2 cough 07/03/2012 786.2 cough 07/03/2012 786.2 cough 07/03/2012 786.2 cough 07/03/2012 SOY CALHOUNN, TAE SHANNON 786.2 cough 07/03/2012 SOY CALHOUNN, TAE SHANNON 786.2 cough 07/03/2012 CARVAJAL DO, GALDINO K 786.2 cough 07/03/2012 OLIVIER HEADING REPAIRER, TAE SHANNON 786.2 cough 07/03/2012 CARVAJAL DO, GALDINO K 786.2 cough 07/03/2012 OLIVIER HEADING REPAIRER, TAE SHANNON 786.2 cough 07/03/2012 CARVAJAL DO, GALDINO K 786.2 cough 07/03/2012 CHECO LEYVA, ROMELIA Guerra 786.2 cough 07/03/2012 SOY CALHOUNN, TAE SHANNON 786.2 cough 07/03/2012 OLIVIER HEADING REPAIRER, TAE SHANNON 786.2 cough 07/03/2012 OLIVIER HEADING REPAIRER, TAE SHANNON 786.2 cough 07/03/2012 OLIVIER HEADING REPAIRER, TAE SHANNON 786.2 cough 07/03/2012 MADPoonam CALHOUNN, MICHOACANO L 786.2 cough 07/03/2012 OLIVIER HEADING REPAIRER, TAE SHANNON 786.2 cough 07/13/2012 CARVAJAL DO, GALDINO K 466.0 ACUTE BRONCHITIS 07/13/2012 CARVAJAL DO, GALDINO K 477.9 ALLERGIC RHINITIS 07/13/2012 OLIVIER HEADING REPAIRER, TAE SHIVA 466.0 ACUTE BRONCHITIS 07/13/2012 OLIVIER HEADING REPAIRER TAE SHIVA 477.9 ALLERGIC RHINITIS 07/13/2012 466.0 ACUTE BRONCHITIS 07/13/2012 477.9 ALLERGIC RHINITIS 07/13/2012 466.0 ACUTE BRONCHITIS 07/13/2012 477.9 ALLERGIC RHINITIS 07/13/2012 466.0 ACUTE BRONCHITIS 07/13/2012 477.9 ALLERGIC RHINITIS 07/13/2012 466.0 ACUTE BRONCHITIS 07/13/2012 477.9 ALLERGIC RHINITIS 07/13/2012 466.0 ACUTE BRONCHITIS 07/13/2012 477.9 ALLERGIC RHINITIS 07/13/2012 OLIVIER HEADING REPAIRER, TAE SHIVA 466.0 ACUTE BRONCHITIS 07/13/2012 OLIVIER HEADING REPAIRER, TAE BAH 477.9 ALLERGIC RHINITIS 07/13/2012 OLIVIER HEADING REPAIRER, TAE SHIVA 466.0 ACUTE BRONCHITIS 07/13/2012 OLIVIER HEADING REPAIRER, TAE SHIVA 477.9 ALLERGIC RHINITIS 07/13/2012 CARVAJAL DO, GALDINO K 466.0 ACUTE BRONCHITIS 07/13/2012 CARVAJAL DO, GALDINO K 477.9 ALLERGIC RHINITIS 07/13/2012 OLIVIER HEADING REPAIRER, TAE SHIVA 466.0 ACUTE BRONCHITIS 07/13/2012 OLIVIER HEADING REPAIRER, TAE BAH 477.9 ALLERGIC RHINITIS 07/13/2012 CARVAJAL DO, GALDINO K 466.0 ACUTE BRONCHITIS 07/13/2012 CARVAJAL DO, GALDINO K 477.9 ALLERGIC RHINITIS 07/13/2012 OLIVIER HEADING REPAIRER, TAE SHIVA 466.0 ACUTE BRONCHITIS 07/13/2012 OLIVIER HEADING REPAIRER, TAE BAH 477.9 ALLERGIC RHINITIS 07/13/2012 CARVAJAL DO, GALDINO K 466.0 ACUTE BRONCHITIS 07/13/2012 CARVAJAL DO, GALDINO K 477.9 ALLERGIC RHINITIS 07/13/2012 ROMELIA KESSLER MD 466.0 ACUTE BRONCHITIS 07/13/2012 ROMELIA KESSLER MD 477.9 ALLERGIC RHINITIS 07/13/2012 OLIVIER HEADING REPAIRER, TAE SHIVA 466.0 ACUTE BRONCHITIS 07/13/2012 OLIVIER HEADING REPAIRER, TAE SHIVA 477.9 ALLERGIC RHINITIS 07/13/2012 OLIVIER HEADING REPAIRER, TAE SHIVA 466.0 ACUTE BRONCHITIS 07/13/2012 OLIVIER HEADING REPAIRER, TAE BAH 477.9 ALLERGIC RHINITIS 07/13/2012 OLIVIER HEADING REPAIRER, TAE SHIVA 466.0 ACUTE BRONCHITIS 07/13/2012 OLIVIER HEADING REPAIRER, TAE SHIVA 477.9 ALLERGIC RHINITIS 07/13/2012 OLIVIER HEADING REPAIRER, TAE SHANNON 466.0 ACUTE BRONCHITIS 07/13/2012 OLIVIER HEADING REPAIRER, TAE SHANNON 477.9 ALLERGIC RHINITIS 07/13/2012 MADL HEADING REPAIRER, MICHOACANO L 466.0 ACUTE BRONCHITIS 07/13/2012 MADL HEADING REPAIRER, MICHOACANO L 477.9 ALLERGIC RHINITIS 07/13/2012 OLIVIER HEADING REPAIRER, TAE SHANNON 466.0 ACUTE BRONCHITIS 07/13/2012 OLIVIER HEADING REPAIRER, TAE SHANNON 477.9 ALLERGIC RHINITIS 01/02/2013 OLIVIER HEADING REPAIRER, TAE SHANNON 295.70 P SCHIZO AFFECTIVE 01/02/2013 OLIVIER HEADING REPAIRER, TAE SHANNON 295.70 P SCHIZO AFFECTIVE 01/02/2013 CARVAJAL DO GALDINO K 295.70 P SCHIZO AFFECTIVE 01/02/2013 OLIVIER HEADING REPAIRER, TAE SHANNON 295.70 P SCHIZO AFFECTIVE 01/02/2013 CARVAJAL DO GALDINO K 295.70 P SCHIZO AFFECTIVE 01/02/2013 OLIVIER HEADING REPAIRER, TAE SHANNON 295.70 P SCHIZO AFFECTIVE 01/02/2013 CARVAJAL DO GALDINO K 295.70 P SCHIZO AFFECTIVE 01/02/2013 CHECO LEYVA, ROMELIA Guerra 295.70 P SCHIZO AFFECTIVE 01/02/2013 OLIVIER HEADING REPAIRER, TAE SHANNON 295.70 P SCHIZO AFFECTIVE 01/02/2013 OLIVIER HEADING REPAIRER, TAE SHANNON 295.70 P SCHIZO AFFECTIVE 01/02/2013 OLIVIER HEADING REPAIRER, TAE SHANNON 295.70 P SCHIZO AFFECTIVE 01/02/2013 OLIVIER HEADING REPAIRER, TAE SHANNON 295.70 P SCHIZO AFFECTIVE 01/02/2013 MADL HEADING REPAIRER, MICHOACANO L 295.70 P SCHIZO AFFECTIVE 01/02/2013 OLIVIER HEADING REPAIRER, TAE SHANNON 295.70 P SCHIZO AFFECTIVE 01/11/2013 626.0 AMENORRHEA 01/11/2013 V73.81 HPV SCREENING 01/11/2013 V74.5 STD SCREEN 01/11/2013 V76.10 BREAST CANCER SCREENING 01/11/2013 V76.2 CERVICAL CANCER SCREENING (PAP SMEAR) 01/11/2013 OLIVIER HEADING REPAIRER, TAE SHANNON 626.0 AMENORRHEA 01/11/2013 OLIVIER HEADING REPAIRER, TAE SHANNON V73.81 HPV SCREENING 01/11/2013 SOY CALHOUNN, TAE SHANNON V74.5 STD SCREEN 01/11/2013 SOY CALHOUNKamille TAE SHANNON V76.10 BREAST CANCER SCREENING 01/11/2013 SOY CALHOUNKamille TAE SHANNON V76.2 CERVICAL CANCER SCREENING (PAP SMEAR) 01/11/2013 SOY CALHOUNKamille TAE SHANNON 626.0 AMENORRHEA 01/11/2013 SOY CALHOUNKamille TAE SHANNON V73.81 HPV SCREENING 01/11/2013 SOY CALHOUNKamille TAE SHANNON V74.5 STD SCREEN 01/11/2013 SOY CALHOUNKamille TAE SHANNON V76.10 BREAST CANCER SCREENING 01/11/2013 SOY CALHOUNKamille TAE SHANNON V76.2 CERVICAL CANCER SCREENING (PAP SMEAR) 01/11/2013 ACRVAJAL DO, GALDINO K 626.0 AMENORRHEA 01/11/2013 CARVAJAL DO, GALDINO K V73.81 HPV SCREENING 01/11/2013 CARVAJAL DO, GALDINO K V74.5 STD SCREEN 01/11/2013 CARVAJAL DO, GALDINO K V76.10 BREAST CANCER SCREENING 01/11/2013 CARVAJAL DO, GALDINO K V76.2 CERVICAL CANCER SCREENING (PAP SMEAR) 01/11/2013 SOY CALHOUNKamille TAE SHANNON 626.0 AMENORRHEA 01/11/2013 SOY CALHOUNKamille TAE SHANNON V73.81 HPV SCREENING 01/11/2013 SOY CALHOUNKamille TAE SHANNON V74.5 STD SCREEN 01/11/2013 SOY CALHOUNKamille TAE SHANNON V76.10 BREAST CANCER SCREENING 01/11/2013 SOY CALHOUNKamille TAE SHANNON V76.2 CERVICAL CANCER SCREENING (PAP SMEAR) 01/11/2013 CARVAJAL DO, GALDINO K 626.0 AMENORRHEA 01/11/2013 CARVAJAL DO, GALDINO K V73.81 HPV SCREENING 01/11/2013 CARVAJAL DO, GALDINO K V74.5 STD SCREEN 01/11/2013 CARVAJAL DO, GALDINO K V76.10 BREAST CANCER SCREENING 01/11/2013 CARVAJAL DO, GALDINO K V76.2 CERVICAL CANCER SCREENING (PAP SMEAR) 01/11/2013 SOY CALHOUNKamille TAE SHANNON 626.0 AMENORRHEA 01/11/2013 SOY CALHOUNKamille TAE SHANNON V73.81 HPV SCREENING 01/11/2013 OLIVIER HEADING REPAIRER, TAE SHANNON V74.5 STD SCREEN 01/11/2013 OLIVIER HEADING REPAIRER, TAE SHANNON V76.10 BREAST CANCER SCREENING 01/11/2013 OLIVIER HEADING REPAIRER, TAE SHANNON V76.2 CERVICAL CANCER SCREENING (PAP SMEAR) 01/11/2013 CARVAJAL DO, GALDINO K 626.0 AMENORRHEA 01/11/2013 CARVAJAL DO, GALDINO K V73.81 HPV SCREENING 01/11/2013 CARVAJAL DO, GALDINO K V74.5 STD SCREEN 01/11/2013 CARVAJAL DO, GALDINO K V76.10 BREAST CANCER SCREENING 01/11/2013 CARVAJAL DO, GALDINO K V76.2 CERVICAL CANCER SCREENING (PAP SMEAR) 01/11/2013 ROMELIA KESSLER MD 626.0 AMENORRHEA 01/11/2013 ROMELIA KESSLER MD V73.81 HPV SCREENING 01/11/2013 ROMELIA KESSLER MD V74.5 STD SCREEN 01/11/2013 ROMELIA KESSLER MD V76.10 BREAST CANCER SCREENING 01/11/2013 ROMELIA KESSLER MD V76.2 CERVICAL CANCER SCREENING (PAP SMEAR) 01/11/2013 OLIVIER HEADING REPAIRER, TAE SHANNON 626.0 AMENORRHEA 01/11/2013 OLIVIER HEADING REPAIRER, TAE SHANNON V73.81 HPV SCREENING 01/11/2013 OLIVIER HEADING REPAIRER, TAE SHANNON V74.5 STD SCREEN 01/11/2013 OLIVIER HEADING REPAIRER, TAE BAH V76.10 BREAST CANCER SCREENING 01/11/2013 OLIVIER HEADING REPAIRER, TAE BAH V76.2 CERVICAL CANCER SCREENING (PAP SMEAR) 01/11/2013 OLIVIER HEADING REPAIRER, TAE BAH 626.0 AMENORRHEA 01/11/2013 OLIVIER HEADING REPAIRER, TAE BAH V73.81 HPV SCREENING 01/11/2013 OLIVIER HEADING REPAIRER, TAE SHANNON V74.5 STD SCREEN 01/11/2013 OLIVIER HEADING REPAIRER, TAE BAH V76.10 BREAST CANCER SCREENING 01/11/2013 OLIVIER HEADING REPAIRER, TAE BAH V76.2 CERVICAL CANCER SCREENING (PAP SMEAR) 01/11/2013 OLIVIER HEADING REPAIRER, TAE BAH 626.0 AMENORRHEA 01/11/2013 TAE OLIVIER APRN V73.81 HPV SCREENING 01/11/2013 SOY GILL, TAE SHANNON V74.5 STD SCREEN 01/11/2013 SOY GILL, TAE SHANNON V76.10 BREAST CANCER SCREENING 01/11/2013 SOY GILL, TAE SHANNON V76.2 CERVICAL CANCER SCREENING (PAP SMEAR) 01/11/2013 TAE OLIVIER APRN 626.0 AMENORRHEA 01/11/2013 SOY CALHOUNN, TAE SHANNON V73.81 HPV SCREENING 01/11/2013 SOY GILL, TAE SHANNON V74.5 STD SCREEN 01/11/2013 SOY GILL, TAE SHANNON V76.10 BREAST CANCER SCREENING 01/11/2013 SOY GILL TAE SHANNON V76.2 CERVICAL CANCER SCREENING (PAP SMEAR) 01/11/2013 MADL HEADING REPAIRER, MICHOACANO L 626.0 AMENORRHEA 01/11/2013 MADL HEADING REPAIRER, MICHOACANO L V73.81 HPV SCREENING 01/11/2013 MADL HEADING REPAIRER, MICHOACANO L V74.5 STD SCREEN 01/11/2013 MADL HEADING REPAIRER, MICHOACANO L V76.10 BREAST CANCER SCREENING 01/11/2013 MADL HEADING REPAIRER, MICHOACANO L V76.2 CERVICAL CANCER SCREENING (PAP SMEAR) 01/11/2013 TAE OLIVIER APRN 626.0 AMENORRHEA 01/11/2013 SOY GILL TAE SHANNON V73.81 HPV SCREENING 01/11/2013 SOY GILL TAE SHANNON V74.5 STD SCREEN 01/11/2013 SOY GILL TAE SHANNON V76.10 BREAST CANCER SCREENING 01/11/2013 SOY GILL, TAE SHANNON V76.2 CERVICAL CANCER SCREENING (PAP SMEAR) 03/23/2013 GALDINO CARVAJAL DO 338.29 OTHER CHRONIC PAIN 03/23/2013 CHECO LEYVA, ROMELIA Guerra 338.29 OTHER CHRONIC PAIN 03/23/2013 OLIVIER HEADING REPAIRERTAE Simental 338.29 OTHER CHRONIC PAIN 03/23/2013 OLIVIER HEADING REPAIRER, TAE SHIVA 338.29 OTHER CHRONIC PAIN 03/23/2013 OLIVIER HEADING REPAIRER, TAE SHIVA 338.29 OTHER CHRONIC PAIN 03/23/2013 TAE OLIVIER APRN 338.29 OTHER CHRONIC PAIN 03/23/2013 MICHOACANO CALDERÓN APRN L 338.29 OTHER CHRONIC PAIN 03/23/2013 TAE OLIVIER APRN 338.29 OTHER CHRONIC PAIN 10/11/2013 MICHOACANO CALDERÓN APRN L 465.9 UPPER RESPIRATORY INFECTION 10/11/2013 MICHOACANO CALDERÓN APRN L 466.0 BRONCHITIS, ACUTE 10/11/2013 OLIVIERTAE AGUILAR APRN 465.9 UPPER RESPIRATORY INFECTION 10/11/2013 TAE OLIVIER APRN 466.0 BRONCHITIS, ACUTE 02/06/2014 AIDE RIVERA Ot 708.9 02/06/2014 AIDE RIVERA Ot 784.2 02/23/2014 MELI OSPINA HEADING REPAIRER Ot 558.9 02/23/2014 MELI OSPINA HEADING REPAIRER Ot 789.00 06/12/2014 KAUR LEYVA, AFTAB Bustamante Ot 780.99 06/14/2014 RAM DO, RASHAD Ot 041.49 06/14/2014 RAM DO, RASHAD Ot 276.8 06/14/2014 RAM DO, RASHAD Ot 298.9 06/14/2014 RAM DO, RASHAD Ot 493.90 06/14/2014 RAM DO, RASHAD Ot 599.0 07/12/2014 Ot 724.2 07/12/2014 Ot 724.4 08/06/2014 BELINDA NOVAK MD Ot 787.03 02/07/2016 BELINDA NOVAK MD Ot 276.8 HYPOPOTASSEMIA 02/07/2016 BELINDA NOVAK MD Ot 298.9 PSYCHOSIS NOS 02/07/2016 BELINDA NOVAK MD Ot 787.91 DIARRHEA 02/07/2016 BELINDA NOVAK MD Ot V58.69 OT MED,LT,CURRENT USE 03/09/2016 BELINDA NOVAK MD Ot 276.8 HYPOPOTASSEMIA 03/09/2016 BELINDA NOVAK MD Ot 298.9 PSYCHOSIS NOS 03/09/2016 BELINDA NOVAK MD Ot 787.91 DIARRHEA 03/09/2016 BELINDA NOVAK MD Ot V58.69 OTH MED,LT,CURRENT USE 06/09/2016 BELINDA NOVAK MD Ot 276.8 HYPOPOTASSEMIA 06/09/2016 BELINDA NOVAK MD Ot 298.9 PSYCHOSIS NOS 06/09/2016 BELINDA NOVAK MD Ot 787.91 DIARRHEA 06/09/2016 BELINDA NOVAK MD Ot V58.69 OTH MED,LT,CURRENT USE 08/07/2016 BELINDA NOVAK MD Ot 276.8 HYPOPOTASSEMIA 08/07/2016 BELINDA NOVAK MD Ot 298.9 PSYCHOSIS NOS 08/07/2016 BELINDA NOVAK MD Ot 787.91 DIARRHEA 08/07/2016 BELINDA NOVAK MD Ot V58.69 OTH MED,LT,CURRENT USE 10/07/2016 BELINDA NOVAK MD Ot 276.8 HYPOPOTASSEMIA 10/07/2016 BELINDA NOVAK MD Ot 298.9 PSYCHOSIS NOS 10/07/2016 BELINDA NOVAK MD Ot 787.91 DIARRHEA 10/07/2016 BELINDA NOVAK MD Ot V58.69 OTH MED,LT,CURRENT USE Procedures Code [place] [address] PSYCH IND W/MED CK 20 07/18/2012 68299 UA W/ CULTURE IF INDICATED 01/03/2013 53485 URINE DRUG SCREEN (IN-HOUSE) 01/03/2013 14212 TRICHOMONAS (IN-HOUSE) 01/11/2013 16645 CULTURE UROGENITAL 01/14/2013 06310 MAMMOGRAM, SCREENING 01/15/2013 36807 GC/CHLAM PROBE (STATE) 01/15/2013 75386 PAP SMEAR 2012 Q0091 PAP SMEAR OBTAIN SMEAR 01/15/2013 67251 URINE DRUG SCREEN (IN-HOUSE) 03/06/2013 12790 URINE OXYCODONE CON'F 03/06/2013 44380 URINE METHAMPHETAMINE GC/MS 03/06/2013 G0008 FLU ADMINISTRATION (MEDICARE ONLY) 03/08/2013 G0008 FLU ADMINISTRATION (MEDICARE ONLY) 03/08/2013 04069 URINE DRUG SCREEN (IN-HOUSE) 04/30/2013 54223 URINE DRUG SCREEN (IN-HOUSE) 07/02/2013 59308 URINE DRUG SCREEN (IN-HOUSE) 11/08/2013 Results Encounters ACCT No. Visit Date/Time Discharge Status Pt. Type Provider Facility Loc./Unit Complaint [id number] 02/07/2014 17:37:00 02/07/2014 23: 59:59 CLS Outpatient OLIVIER HEADING REPAIRERTAE Simental [id number] 10/11/2013 09:20:00 10/11/2013 23: 59:59 CLS Outpatient ARACELIL HEADING REPAIRERMICHOACANO [id number] 10/09/2013 13:38:00 10/09/2013 23: 59:59 CLS Outpatient OLIVIER HEADING REPAIRERTAE Simental [id number] 07/09/2013 16:15:00 07/09/2013 23: 59:59 CLS Outpatient OLIVIER HEADING REPAIRERTAE Simental [id number] 07/02/2013 08:53:00 07/02/2013 23: 59:59 CLS Outpatient OLIVIER TAE GILL [id number] 04/30/2013 16:48:00 04/30/2013 23: 59:59 CLS Outpatient OLIVIER HEADING REPAIRERTAE Simental [id number] 04/03/2013 11:11:00 04/03/2013 23: 59:59 CLS Outpatient CHECO LEYVA, ROMELIA Guerra [id number] 03/23/2013 14:06:00 03/23/2013 23: 59:59 CLS Outpatient GALDINO CARVAJAL DO [id number] 03/08/2013 10:56:00 03/08/2013 23: 59:59 CLS Outpatient GALDINO CARVAJAL DO [id number] 02/28/2013 13:00:00 02/28/2013 23: 59:59 CLS Outpatient OLIVIER HEADING REPAIRERTAE Simental [id number] 02/28/2013 13:00:00 02/28/2013 23: 59:59 CLS Outpatient OLIVIER HEADING REPAIRERTAE Simental [id number] 01/27/2013 11:43:00 01/27/2013 23: 59:59 CLS Outpatient OLIVIER TAE GILL [id number] 01/12/2013 15:31:00 01/12/2013 23: 59:59 CLS Outpatient OLIVIER HEADING REPAIRERTAE Simental [id number] 01/11/2013 15:06:00 01/11/2013 23: 59:59 CLS Outpatient GALDINO CARVAJAL DO [id number] 07/18/2012 16:17:00 07/18/2012 23: 59:59 CLS Outpatient TAE OLIVIER APRN [id number] 07/13/2012 08:29:00 07/13/2012 23: 59:59 CLS Outpatient GALDINO CARVAJAL DO [id number] 07/03/2012 13:15:00 07/03/2012 23: 59:59 CLS Outpatient DENISE GILLJOSELUIS [id number] 06/20/2012 14:28:00 06/20/2012 23: 59:59 CLS Outpatient DENISE GILLJOSELUIS [id number] 06/07/2012 13:03:00 06/07/2012 23: 59:59 CLS Outpatient TAE OLIVIER APRN [id number] 05/12/2012 16:18:00 05/12/2012 23: 59:59 CLS Outpatient [id number] 04/19/2012 18:43:00 04/19/2012 23: 59:59 CLS Outpatient [id number] 03/09/2012 15:33:00 03/09/2012 23: 59:59 CLS Outpatient [id number] 01/11/2013 15:06:00 Document Registration [id number] 01/03/2013 16:31:00 Document Registration [id number] 12/02/2012 09:47:00 Document Registration [id number] 10/26/2012 12:31:00 Document Registration [id number] 09/26/2012 11:14:00 Document Registration [id number] 08/05/2014 18:21:00 2014 18:33:00 DIS Emergency BELINDA NOVAK MD [facility] ER [id number] 06/13/2014 19:40:00 2014 18:45:00 DIS Inpatient RASHAD RAM DO [facility] SURGICAL [id number] 06/12/2014 20:02:00 2014 20:15:00 DIS Emergency AFTAB DIETRICH MD [facility] ER [id number] 02/23/2014 16:36:00 2013 18:22:00 DIS Emergency MELI OSPINA APRN [facility] ER [id number] 02/06/2014 17:01:00 2013 19:29:00 DIS Emergency AIDE RIVERA [facility] ER [id number] 12/19/2013 18:30:00 2013 20:21:00 DIS Emergency [id number] 12/15/2013 16:49:00 2013 18:33:00 DIS Emergency [id number] 11/04/2013 13:16:00 2013 14:51:00 DIS Emergency [id number] 07/04/2013 18:44:00 2013 20:20:00 DIS Emergency [id number] 06/27/2013 16:13:00 2013 19:22:00 DIS Emergency [id number] 06/26/2013 16:41:00 2013 18:42:00 DIS Emergency [id number] 05/20/2013 18:21:00 2013 20:15:00 DIS Emergency [id number] 03/22/2013 22:53:00 2012 02:37:00 DIS Emergency [id number] 03/20/2013 20:04:00 2012 20:49:00 DIS Emergency [id number] 01/05/2013 12:38:00 2012 13:53:00 DIS Emergency [id number] 12/14/2012 22:45:00 2012 23:29:00 DIS Emergency [id number] 12/07/2012 19:38:00 2012 15:08:00 DIS Inpatient [id number] 12/07/2012 00:03:00 2012 01:48:00 DIS Outpatient BELINDA NOVAK MD [facility] ER PSYCH, UNABLE TO EAT [id number] 07/12/2014 11:36:00 Document Registration
[2017-02-12] MEDS ORDERED: LURA20TA (15:29)
[2017-02-12] MEDS ORDERED: TRAZ-28 (15:29)
[2017-02-12] MEDS ORDERED: HYDR-700 (15:29)
[2017-02-12] MEDS ORDERED: TRAZ-28 PO (16:20)
[2017-02-12] MEDS ORDERED: LURA20TA PO (16:20)
[2017-02-12] MEDS ORDERED: HYDR-700 PO (16:20)
--- NOTE | 2017-02-12 16:20 | ED General ---
General Chief Complaint: General Problems/Pain Stated Complaint: MED CHECK/PSYCH EVAL Nursing Triage Note: AMB TO ROOM REPORTS IS OUT OF MEDS. HERE FOR MED REFILL ONLY Nursing Sepsis Screen: No Definite Risk Source of Information: Patient Exam Limitations: No Limitations History of Present Illness Time Seen by Provider: 16:00 Initial Comments 46-year-old female patient presents to the emergency Department with reports of needing her medications refilled. Patient initially reported being on clonazepam, trazodone, and latuda. States she was recently released from long term and does not have any medication at home. States she has not called a primary care provider for appointment. Per med reconciliation history patient is taking hydroxyzine, latuda, and trazodone. Modifying Factors: improves with Other (improved when she is taking her medications.) Allergies and Home Medications Allergies Coded Allergies: ziprasidone HCl (Unverified Allergy, Severe, 12/08/12) ziprasidone mesylate (Unverified Allergy, Severe, 12/08/12) aripiprazole (Unverified Allergy, Mild, 12/21/08) olanzapine (Verified Allergy, Unknown, 02/12/17) Home Medications Epinephrine 0.3 Mg/0.3 Ml Pen.injctr, 0.3 MG IM UD PRN for SHORTNESS OF BREATH, #2 Ref 0 prn swelling of the throat/allergic reaction Prescribed by: AIDE ODONNELL on 02/06/14 1853 Hydroxyzine HCl 25 Mg Tablet, (Reported) Hydroxyzine HCl 25 Mg Tablet, 25 MG PO BID, #28 Ref 0 Prescribed by: AIDE ODONNELL on 02/12/17 1620 Lurasidone HCl 20 Mg Tablet, (Reported) Lurasidone HCl 20 Mg Tablet, 20 MG PO DAILY, #14 Ref 0 Prescribed by: AIDE ODONNELL on 02/12/17 1620 Trazodone HCl 50 Mg Tablet, (Reported) Trazodone HCl 50 Mg Tablet, 50 MG PO HS, #14 Ref 0 Prescribed by: AIDE ODONNELL on 02/12/17 1620 Trazodone Hcl 150 Mg Tablet, 225 MG PO HS, (Reported) TAKES 1 & 1/2 (150MG) TABLET Constitutional: No chills, No dizziness, No fever, No malaise EENTM: no symptoms reported Respiratory: No cough, No short of breath Cardiovascular: No chest pain, No edema, No palpitations Gastrointestinal: No abdominal pain, No constipation, No diarrhea, No loss of appetite, No nausea, No vomiting Genitourinary: no symptoms reported Musculoskeletal: no symptoms reported Skin: no symptoms reported Psychiatric/Neurological: See HPI, Anxiety, Denies Headache, Denies Numbness, Denies Paresthesia, Denies Seizure, Denies Tingling, Denies Weakness All Other Systems Reviewed Negative Unless Noted: Yes (Negative excepted noted.) Past Kyevuyp-Yieixb-Xnfuco Hx Patient Social History Alcohol Use: Denies Use Recreational Drug Use: No Smoking Status: Never a Smoker Recent Foreign Travel: No Contact w/Someone Who Travel: No Recent Infectious Disease Expo: No Immunizations Up To Date Tetanus Booster (TDap): Unknown Date of Pneumonia Vaccine: Mar 09, 2012 Date of Influenza Vaccine: Mar 01, 2013 Seasonal Allergies Seasonal Allergies: No Surgeries History of Surgeries: Yes Surgeries: Adenoidectomy, Section, Tonsillectomy, Tubal Ligation Respiratory History of Respiratory Disorde: Yes Respiratory Disorders: COPD Cardiovascular History of Cardiac Disorders: No Neurological History of Neurological Disord: No Reproductive System Hx Reproductive Disorders: No Sexually Transmitted Disease: No HIV/AIDS: No Female Reproductive Disorders: Denies [employer] History: Tubal Ligation Genitourinary Genitourinary Disorders: Bladder Infection Gastrointestinal History of Gastrointestinal Di: No Musculoskeletal History of Musculoskeletal Dis: Yes (nerve/circulatory pain jarett feet) Musculoskeletal Disorders: Chronic Back Pain Endocrine History of Endocrine Disorders: No Cancer History of Cancer: No Psychosocial History of Psychiatric Problem: Yes (ALTERED MENTAL STATUS 06/14/14) Behavioral Health Disorders: Anxiety, Bipolar, Schizophrenia Integumentary History of Skin or Integumenta: No Blood Transfusions History of Blood Disorders: No Reviewed Nursing Assessment Reviewed/Agree w Nursing PMH: Yes Family Medical History Significant Family History: Heart Disease, COPD Family Medial History: Patient reports no known family medical history. Physical Exam Vital Signs Vital Sign - Last 12Hours 02/12/17 15:12 Pulse 89 Resp 18 B/P (MAP) 113/83 Pulse Ox 99 Capillary Refill : Less Than 3 Seconds General Appearance: No Apparent Distress, WD/WN HEENT: PERRL/EOMI, Pharynx Normal Neck: Normal Inspection, Supple Respiratory: Lungs Clear, Normal Breath Sounds, No Accessory Muscle Use, No Respiratory Distress Cardiovascular: Regular Rate, Rhythm, No Edema, No Murmur, Normal Peripheral Pulses Back: Normal Inspection Extremity: Normal Capillary Refill, No Calf Tenderness, No Pedal Edema Neurologic/Psychiatric: Alert, Oriented x3, Depressed Affect (flat, depressed affect.) Skin: Normal Color, Warm/Dry Progress/Results/Core Measures Results/Orders Vital Signs/I&O Vital Sign - Last 12Hours 02/12/17 02/12/17 15:12 16:33 Pulse 89 89 Resp 18 18 B/P (MAP) 113/83 Pulse Ox 99 99 Blood Pressure Mean: 93 Departure Communication (Admissions) Progress Notes Patient seen and evaluated. Patient is given prescriptions for Latuda, trazodone, and hydroxyzine for 2 weeks. Patient to f/u with the PCP of her choice for med refills. Impression Impression: Primary Impression: Encounter for medication refill Disposition: HOME, SELF-CARE Condition: Improved Departure-Patient Inst. Decision time for Depature: 16:17 Referrals: NO,LOCAL PHYSICIAN (PCP/Family) Primary Care Physician Patient Instructions: Medication Safety, Adult Add. Discharge Instructions: All discharge instructions reviewed with patient and/or family. Voiced understanding. Continue usual home medications. Follow-up with the primary care provider of your choice for establishing care and all further medication refills. Call Tuesday morning for appointment time. Return to the emergency department for worsened symptoms or any other concerns. 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
[2017-02-12 16:33] VITALS: BP 113/83
== END 2017-02-12 16:25 | disposition home or self-care (01) ==
LOC: EDUNIT# 15:03 → ER 15:06
DX: F41.9 Anxiety disorder, unspecified (principal); F31.9 Bipolar disorder, unspecified; J44.9 Chronic obstructive pulmonary disease, unspecified; F20.9 Schizophrenia, unspecified; Z87.448 Personal history of other diseases of urinary system; Z98.51 Tubal ligation status; Z82.49 Family history of ischemic heart disease and other diseases of the circulatory system; Z90.89 Acquired absence of other organs
CPT/HCPCS: 99281